=== PATIENT | male | born 1990 | race Two or more races ===

== ENCOUNTER 2017-01-05 20:13 | Emergency (ER) | payer SELFPAY ==
[~2017-01-05] VITALS: Ht 170.2 cm; Wt 88.1 kg
[2017-01-05 20:21] VITALS: BP 139/96
[2017-01-05 22:02] LABS: ASPARTATE AMINO TRANSFERASE 23 U/L (15-37); BLOOD UREA NITROGEN 23 mg/dL (7-18)
== END 2017-01-05 22:30 | disposition home or self-care (01) ==
LOC: ED 22:15
DX: K64.8 Other hemorrhoids (principal); K59.00 Constipation, unspecified
CPT/HCPCS: 36415; 74020; 80053; 85025; 99285